=== PATIENT | male | born 1950 | race Caucasian/White ===

== ENCOUNTER → 2017-12-14 | Outpatient (CLI) | payer OTHER ==
[~2017-12-14] MED LIST: ACCUPRIL PO; ACCUPRIL40 MG PO; ACTOS 45 MG45 M1 PO; ASA5UEC PO; ASPIR 8181 M1 PO; ASPIRIN EC81 M1 PO; ASPIRIN325 PO; AVODART0.5 MG PO; CARDIZEM CD360 MG PO; CO Q1060 MG; CRESTOR10 MG PO; CRESTOR20 MG PO; EFFIENT10 MG PO; EZETIMIBE PO; FISH OIL 1,0001 EAC5 PO; FISHOIL PO; GLUCOPHAGE1000 MG PO; HYDROCODON-ACE1 EAC7 PO; INSULIN DETEMIR; JANUVIA100 MG PO; LEVEMIR SUBQ; LO-DOSE ASPIRIN81 M1 PO; MEGARED PLANT-300 MG; MELOXICAM7.5 MG PO; METFORMIN PO; MIRAPEX0.5 MG PO; MULTIVITAMINS PO; NEURONTIN 300300 M1 PO; NITROSTAT0.4 MG SL; NITROSTAT0.4 MG SUBLING; NOVOLOG100 UNIT/1 SUBQ; ONGLYZA5 MG PO; PLAVIX 75 MG TA75 M1 PO; PLAVIX 75 MG TA75 MG PO; PRILOSEC 20 MG20 MG PO; PROAIR HFA8.5 GM IH; QUINU10 PD PO; RANEXA500 MG PO; SORINE 80 MG TA80 M1 PO; UNICOMPLEX M TA1 TA1 PO; ZETIA10 MG PO
== END ==
LOC: RAD 12:47
DX: M19.072 Primary osteoarthritis, left ankle and foot (principal); M25.872 Other specified joint disorders, left ankle and foot; I48.91 Unspecified atrial fibrillation; I48.92 Unspecified atrial flutter; N17.0 Acute kidney failure with tubular necrosis; I25.10 Atherosclerotic heart disease of native coronary artery without angina pectoris; E11.9 Type 2 diabetes mellitus without complications; I10 Essential (primary) hypertension; E78.5 Hyperlipidemia, unspecified; N40.0 Benign prostatic hyperplasia without lower urinary tract symptoms; G47.33 Obstructive sleep apnea (adult) (pediatric); E66.01 Morbid (severe) obesity due to excess calories

== ENCOUNTER → 2018-09-28 | Outpatient (CLI) | payer OTHER ==
--- NOTE | ~2018-09-28 | SLE ---
[facility] [place] [address] POLYSOMNOGRAPHY STUDY Name: FACUNDO REYES Room #: REG [facility]#: [id number] Admission: 09/28/18 Attend Phys: Reji Davenport MD Discharge: Date of : 52 Report #: [id number] THIS REPORT FOR: //name// CC: Reji Benítez MD DATE OF SERVICE: 09/28/2018 ATTENDING PHYSICIAN: Dr. Canelo Benítez. The patient is 67 years old who weighs 220 pounds and is 60 inches tall with a BMI of 33.4. The patient has severe subjective hypersomnia with an Frontenac score of 23 out of a maximum of 24. The patient underwent a sleep study at [facility] to rule out PUNEET. During the night study, the patient spent 470 minutes in bed and slept for 369 minutes with a sleep efficiency of 78%. Sleep latency was 1.5 minutes with a REM latency of 84 minutes. Overall, sleep architecture showed normal stage 1 sleep, increased stage 2 sleep, which was 77% of the total sleep time. Reduced N3 sleep, which was 1% of total sleep time and normal REM sleep. During the night study, the patient had 2 apneas both were central and 34 hypopneas. The patient's apnea hypopnea index was 6 per hour with a REM index of 8.2 per hour and his supine index of 7.6 per hour. EKG monitoring revealed an average heart rate of 75 beats per minute with a maximum of 112 beats per minute. PVCs were observed. No sustained arrhythmias were observed. PLMs were seen at an index of 27 per hour and 3.7 per hour caused EEG arousals. Nocturnal oximetry study revealed an average oxygen saturation of 95% with lows of 80%, 3.5 minutes were spent in oxygen saturation of less than 89%. Due to low AHI, the patient did not meet the split night criteria for CPAP initiation. IMPRESSION: 1. Mild sleep apnea-hypopnea syndrome at an apnea-hypopnea index of 6 per hour. 2. Mild to moderate periodic limb movements. 3. Mild nocturnal hypoxia related to obstructive sleep apnea. RECOMMENDATIONS: 1. The patient did not meet the split night criteria for CPAP initiation due to low AHI. [address] [address] POLYSOMNOGRAPHY STUDY Name: FACUNDO REYES Jamie [id number] Admission: 09/28/18 Attend Phys: Reji Davenport MD Discharge: Date of : 52 Report #: [id number] 2. The patient has severe subjective hypersomnia with an Frontenac score of 23. The patient is not on any sedative medications. I would recommend treating the patient's sleep apnea either with an oral appliance or a trial of CPAP titration. After above treatment, the patient should be followed up to assess compliance with treatment and to document clinical improvement. 3. If patient does not have any significant clinical improvement after the above recommendation, then the patient should also be further evaluated for any coexisting disorder such as narcolepsy or idiopathic hypersomnia. The patient may require MSLT at that time. 4. Avoid [employer] depressants. 5. Cautioned regarding driving until the patient's hypersomnia is resolved with the above recommendations. <ELECTRONICALLY SIGNED> By: Reji Davenport MD 09/30/18 [id number] Reji Davenport MD /nt
== END ==
LOC: SLEEPLAB 09-21 15:30
DX: G47.33 Obstructive sleep apnea (adult) (pediatric) (principal)

== ENCOUNTER → 2018-11-16 | Outpatient (CLI) | payer OTHER | LOC: RAD 10:10 | DX: R06.02 Shortness of breath (principal); Z87.81 Personal history of (healed) traumatic fracture; Z95.0 Presence of cardiac pacemaker ==

== ENCOUNTER → 2019-03-08 | Outpatient (CLI) | payer OTHER | LOC: RAD 09:29 | DX: I11.9 Hypertensive heart disease without heart failure (principal) ==

== ENCOUNTER → 2020-03-06 | Outpatient (CLI) | payer OTHER | LOC: RAD 15:43 | DX: R29.890 Loss of height (principal) ==

== ENCOUNTER → 2020-03-08 | Outpatient (CLI) | payer OTHER | LOC: MRI 09:21 | DX: M47.814 Spondylosis without myelopathy or radiculopathy, thoracic region (principal); M40.294 Other kyphosis, thoracic region; M54.9 Dorsalgia, unspecified ==

== ENCOUNTER → 2021-10-23 | Outpatient (CLI) | payer OTHER | LOC: RAD 13:27 | PROVIDERS: ATTEND Internal Medicine Pulmonary Disease | DX: R06.00 Dyspnea, unspecified (principal) ==